=== PATIENT | male | born 1960 | race Caucasian/White ===

== ENCOUNTER → 2019-10-11 | Outpatient (CLI) | payer MEDICARE, BC ==
[~2019-10-11] MED LIST: ACET500C OR; ALEVE; AMIT25TA2; AMIT25TA2 OR; AMIT50TA4 PO; DYAZ37.5; DYAZCA PO; IBUP600T OR; LYRI150C OR; LYRI200C PO; NEUR100C OR; OXYC1TAB30 PO; TRAM50TA2 OR; VITA200015 PO
--- NOTE | 2019-10-24 04:42 | ECWPNPC ---
PATIENT NAME: MARC POLANCO : 1960 GENDER: MALE VISIT DATE: 10/11/2019 DISCHARGE DATE: 10/11/19 1100 VISIT LOCKED DATE TIME: PHYSICIAN: JESUS JACOME MD RESOURCE: JESUS JACOME MD REASON FOR APPOINTMENT 1. DCS REMOVAL HISTORY OF PRESENT ILLNESS PAIN SCREENING: PATIENT HAS A COMPLAINT OF ACUTE OR CHRONIC PAIN :YES 59 YEAR OLD MALE PATIENT WITH A HISTORY OF CHRONIC LOW BACK AND LEG PAIN. THE PATIENT DESCRIBES THE PAIN BURNING, SHARP, STABBING, DAILY, AND CONTINUOUS WITH A PAIN SCORE OF 7-10/10 DEPENDING ON PHYSICAL ACTIVITY. THE PATIENT STATES HIS PAIN BEGINS IN HIS LOW BACK AND RADIATES DOWN HIS RIGHT LEG. THE PATIENT SAYS HE HAS BEEN SUFFERING FROM HIS PAIN FOR MANY YEARS. THE PATIENT SAYS HE RECEIVED A DCS IMPLANT ABOUT SEVEN YEARS AGO, WHICH HELPS WITH SOME OF THE LEG BURNING AND PAIN, BUT NOT THE BACK PAIN. THE PATIENT SAYS WHEN HIS DCS IS OFF, HIS PAIN IS STILL PRESENT. THE PATIENT SAYS HE WAS SEEN BY A NEUROLOGIST TO STUDY WHAT MAY BE CAUSING HIS LEG PAIN, BUT THE TESTS DID NOT SHOW ANY REASON FOR THE PAIN. THE PATIENT SAYS HE IS USING OXYCODONE FOR HIS BACK PAIN AND LYRICA FOR THE BURNING SENSATION IN HIS LEG. THE PATIENT STATES HE IS UNABLE TO HAVE MRI'S DUE TO THE DCS IMPLANT, AND HE WOULD LIKE TO HAVE IT REMOVED SO HE CAN HAVE NECESSARY STUDIES DONE. PATIENT DENIES UNEXPLAINABLE WEIGHT LOSS, FEVER, CHILLS, NEW CHANGES ON HIS URINARY OR BOWEL CONTROL. FALL RISK SCREENING: SCREENING :NO FALLS REPORTED IN THE LAST YEAR CURRENT MEDICATIONS TAKING OXYCODONE-ACETAMINOPHEN 7.5-325 MG TABLET 1 TABLET NEEDED ORALLY EVERY 4 HOURS NEEDED MDD=5 TAKING TRIAMTERENE-HCTZ 37.5-25 MG TABLET 1 TABLET IN THE MORNING ORALLY ONCE A DAY TAKING AMITRIPTYLINE HCL 50 MG TABLET 1 TABLET AT BEDTIME ORALLY ONCE A DAY TAKING METOPROLOL SUCCINATE ER 50 MG TABLET EXTENDED RELEASE 24 HOUR 1 TABLET ORALLY ONCE A DAY TAKING LYRICA 200 MG CAPSULE 1 CAPSULE 1 TO 3 HOURS BEFORE BEDTIME ORALLY TID MEDICATION LIST REVIEWED AND RECONCILED WITH THE PATIENT PAST MEDICAL HISTORY HYPERTENSION CHRONIC BACK PAIN SLEEP APNEA ALLERGIES N.K.D.A. SURGICAL HISTORY RIGHT KNEE LEFT SHOULDER LOW BACK SURGERY L3 L4 L5 L6 GALL BLADDER REMOVAL GASTRIC BYPASS DORSAL COLUMN INSTALL FAMILY HISTORY FATHER: ALIVE, DIAGNOSED WITH UNSPECIFIED HEART DISEASE MOTHER: ALIVE SIBLINGS: ALIVE SOCIAL HISTORY GENERAL: TOBACCO USE ARE YOU A:NONSMOKER EDUCATION LEVEL OF EDUCATION:HIGH SCHOOL LANGUAGE LANGUAGES SPOKEN:HEBREW RECREATIONAL DRUG USE DRUG USE?NO LEARNING BARRIERS / SPECIAL NEEDS BARRIERS TO LEARNING?NO HEARING IMPAIRED?NO VISION IMPAIRED?YES :CORRECTIVE LENSES COGNITIVELY IMPAIRED?NO READINESS TO LEARN?YES PAIN CLINIC PFS, CLERGY, PUBLIC HEALTH REFERRALS HAS THE PATIENT BEEN EDUCATED REGARDING HIS/HER PLAN OF CARE?YES HAS THE PATIENT BEEN EDUCATED REGARDING PAIN, THE RISK FOR PAIN, THE IMPORTANCE OF EFFECTIVE PAIN MANAGEMENT, AND THE PAIN ASSESSMENT PROCESS?YES LATEX QUESTIONNAIRE LATEX ALLERGY : HAVE YOU EVER DEVELOPED ANY TYPE OF REACTION AFTER HANDLING LATEX PRODUCTS SUCH RUBBER GLOVES, CONDOMS, DIAPHRAGMS, BALLOONS, SOCKS, OR UNDERWEAR?NO LATEX ALLERGY : HAVE YOU EVER DEVELOPED ANY TYPE OF REACTION DURING OR AFTER DENTAL APPOINTMENT, VAGINAL/RECTAL EXAMINATION, SURGICAL PROCEDURE, OR ANY OTHER EXPOSURE?NO LATEX RISK : HAVE YOU EVER HAD ANY DIFFICULTY BREATHING OR HIVES AFTER EATING OR HANDLING ANY FRUITS, OR VEGETABLES; SUCH KIWI, BANANAS, STONE FRUITS, OR CHESTNUTSNO LATEX RISK : DO YOU HAVE A PREVIOUS PERSONAL HISTORY OF MORE THAN NINE SURGERIES, SPINA BIFIDA, OR REPEATED CATHERIZATIONS? NO LATEX RISK : ARE YOU FREQUENTLY EXPOSED TO LATEX PRODUCTS IN YOUR OCCUPATION?NO DATE ASKED : 10/11/2019 CAFFEINE CAFFEINE USE?YES COFFEE 3X'S A DAY ; SODA 1-2 TIMES A DAY ADVANCE DIRECTIVE ADVANCE DIRECTIVE DISCUSSED WITH PATIENT:YES PT STATES HE DOES HAVE HCP FOR ANDERS POLANCO [phone] HINDU [id number] MARITAL STATUS: . ALCOHOL SCREENING DID YOU HAVE A DRINK CONTAINING ALCOHOL IN THE PAST YEAR?YES HOW OFTEN DID YOU HAVE A DRINK CONTAINING ALCOHOL IN THE PAST YEAR?MONTHLY OR LESS (1 POINT) HOW MANY DRINKS DID YOU HAVE ON A TYPICAL DAY WHEN YOU WERE DRINKING IN THE PAST YEAR?1 OR 2 (0 POINTS) HOW OFTEN DID YOU HAVE SIX OR MORE DRINKS ON ONE OCCASION IN THE PAST YEAR?NEVER (0 POINTS) POINTS1 INTERPRETATIONNEGATIVE OCCUPATION: RETIRED [employer]. REVIEWED WITH PATIENT 10/11/2019 1015 BV. HOSPITALIZATION/MAJOR DIAGNOSTIC PROCEDURE SEE SURGERIES ABOVE REVIEW OF SYSTEMS REVIEWED BY: PROVIDER: JESUS JACOME MD . CONSTITUTIONAL: ANY CHANGE IN YOUR MEDICAL CONDITION? NO . CHILLS NO . FEVER NO . INFECTION: DO YOU HAVE NEW INFECTIONS? NO . DO YOU HAVE HISTORY OF MRSA? NO . MUSCULOSKELETAL: ANY NEW PATTERNS OF PAIN OR NUMBNESS? YES, PT REPORTS THE PAST 4-5 YEARS HAVING NUMBNESS IN LEFT LEG. STATES HIS LEFT FOOT "DRAGS AND DOESN'T RESPOND LIKE IT SHOULD" . SYTEMIC LUPUS NO . GASTROENTEROLOGY: ANY NEW CHANGE IN BOWEL CONTROL? NO . BARRETTS ESOPHAGUS NO . CIRRHOSIS NO . HEPATITIS NO . LIVER FAILURE NO . ACID REFLUX NO . UNEXPLAINED WEIGHT LOSS NO . GENITOURINARY: ANY NEW CHANGE IN BLADDER CONTROL? NO . IS THERE A CHANCE YOU COULD BE ? NO . HEMATOLOGY/LYMPH: DO YOU TAKE ANY BLOOD THINNERS? (FOR EXAMPLE- COUMADIN, PLAVIX, AGGRENOX, PLATEL, PRADAXA, OR XARELTO) NO . WHEN WAS YOUR LAST DOSE? DATE: TIME: . LOW PLATELET COUNT NO . SICKLE CELL DISEASE NO . VON WILLIEBRANDS NO . FACTOR V LEIDEN NO . THALLASEMIA NO . ANEMIA NO . EASY BRUISING NO . NEUROLOGY: HAVE YOU FALLEN IN THE PAST 12 MONTHS? YES, MULTIPLE FALLS IN THE PAST YEAR DUE TO LOSS OF BALANCE. DENIES ANY INJURIES OR ED VISIT WITH ANY FALL. PT STATES HE DOES USE A CANE "MOST OF THE TIME" TO HELP WITH THE LOSS OF BALANCE . ANY NEW EXTREMITY NUMBNESS OR WEAKNESS? NO . HEAD INJURY NO . DEMENTIA NO . CEREBRAL PALSY NO . MULTIPLE SCLEROSIS NO . DIZZINESS NO . HEADACHE NO . STROKES NO . VERTIGO NO . CARDIOLOGY: DO YOU HAVE A PACEMAKER OR DEFIBRILLATOR? PT DOES HAVE DORSAL COLUMN STIMULATOR . ANGINA NO . HEART ATTACK NO . HEART SURGERY NO . CONGESTIVE HEART FAILURE/FLUID OVERLOAD NO . CHEST PAIN NO . HIGH BLOOD PRESSURE ON MEDICATION(S) . IRREGULAR HEART BEAT NO . RESPIRATORY: HAVE YOU BEEN SICK IN THE PAST WEEK? NO . FEVER NO . FLU LIKE SYMPTOMS? NO . CPAP YES, PT DIAGNOSED WITH SLEEP APNEA AND DOES USE CPAP EVERY NIGHT . BYPAP NO . ASTHMA NO . EMPHYSEMA NO . CHRONIC LUNG DISEASES NO . SHORTNESS OF BREATH ON EXERTION NO . COUGH NO . SNORING NO . INTEGUMENTARY: DO YOU HAVE ANY RASHES OR OPEN SORES? NO . ALLERGIC/IMMUNO: ARE YOU ALLERGIC TO IV DYE? NO . ANY NEW ALLERGIES? NO . PSYCHIATRIC: DO YOU HAVE THOUGHTS OF HURTING YOURSELF OR SOMEONE ELSE? NO . ARE YOU ABUSED, NEGLECTED, OR IN AN UNSAFE ENVIRONMENT? NO . ENDOCRINOLOGY: ARE YOU DIABETIC? NO . THYROID DISORDER NO . OTHER: DO YOU NEED ANY PRESCRIPTIONS? NO . IF YES, PLEASE LIST: ____ . ANY NEW PROBLEMS WITH YOUR MEDICATIONS? NO . WHEN DID YOU LAST EAT? ____ . WHEN DID YOU LAST DRINK? ____ . WHAT DID YOU LAST DRINK? ____ . NAME OF PERSON DRIVING YOU HOME? ____ . DO YOU HAVE ANY OTHER QUESTIONS OR CONCERNS NO . VITAL SIGNS WT 316 LBS, HT 70 IN, BMI 45.34 INDEX, BP 144/72 MM HG, HR 71 /MIN, RR 20 /MIN, TEMP 97.9 F, OXYGEN SAT % 96%, NA INITIALS SC 10:01, REVIEWED BY: BV. EXAMINATION GENERAL EXAMINATION: PATIENT IS ALERT O X 3 AND COOPERATIVE. LUNGS CLEAR, TO AUSCULTATION. HEART: NO MURMURS OR GALLOPS; FACIAL CRANIAL NERVES ARE GROSSLY NORMAL. GOOD SYMMETRY OF FACIAL MUSCLE MOVEMENT. NORMAL VISUAL VILLALOBOS. ANTALGIC WALK. PATIENT IS LIMPING FROM THE LEFT LEG. SURGICAL SCAR OF THE DCS IMPLANT IS PRESENT. LEFT LEG IS WEAKER AT EXTENSION AND FLEXION. CT SCAN OF THE THORACIC SPINE DONE ON 02/07/[address] SCAN OF THE LUMBAR SPINE DONE ON 02/07/2019 SHOWS STENOSIS AT L3-L4, L4-L5, AND L5-S1 LEVELS, BULGING DISCS AT MULTIPLE LEVELS, AND FRACTURE OF THE RIGHT ILIAC BONE. HEAD CT SCAN DONE ON 12/27/2018 SHOWS NO ACUTE PATHOLOGY. ASSESSMENTS INTERVERTEBRAL DISC DISORDERS WITH RADICULOPATHY, LUMBAR REGION - M51.16 (PRIMARY) LEFT LEG WEAKNESS - R29.898 STATUS POST DCS IMPLANT--7 YEARS AGONEW ONSET LEFT LEG WEAKNESS--WITHOUT CLEAR ETIOLOGY. TREATMENT INTERVERTEBRAL DISC DISORDERS WITH RADICULOPATHY, LUMBAR REGION CLINICAL NOTES: WE DISCUSSED SEVERAL ISSUES WITH MR. POLANCO'S PAIN MANAGEMENT CASE. WE AGREED ON REMOVING THE PATIENT'S DCS IMPLANT TO ALLOW HIM TO HAVE MRI STUDIES DONE TO LOCATE THE REASON FOR HIS LEFT LEG WEAKNESS. AFTER HE HAD THE APPROPRIATE STUDIES DONE, WE WILL CONSIDER TRYING FOR ANOTHER DCS TRIAL FOR A NEW DCS IMPLANT WITH NEW TECHNOLOGY. I WILL REFER THE PATIENT TO NEREYDA JOY FOR THE REMOVAL OF THE PATIENT'S CURRENT DCS IMPLANT. INSTRUCTIONS WERE GIVEN, QUESTIONS WERE ANSWERED, PATIENT REPORTS UNDERSTANDING AND AGREES WITH THE PLAN. I, KRISTI SANTOS, DOCUMENTED THE ABOVE INFORMATION ACTING A SCRIBE FOR DR. JACOME. I HAVE REVIEWED THE ABOVE DOCUMENT, WRITTEN BY KRISTI HARRISONIBFany AND I VERIFY THAT IT IS ACCURATE. DEAR DR. AMPARO WYMAN: THANK YOU FOR YOUR KIND REFERRAL OF MARC POLANCO. IF YOU WANT TO DISCUSS HIS CASE WITH ME PLEASE CALL ME AT THE PAIN CENTER AT [phone]. SINCERELY, JESUS JACOME MD PAIN MEDICINE . PROCEDURE CODES FA211 ESTABILISHED PATIENT [facility] CHARGE [id number] CURRENT MEDS W/DOSAGES DOCUMENTED G8730 PAIN ASSESS POS TOOL F/U PLAN DOC DISPOSITION & COMMUNICATION FOLLOW UP REASON: REFERRING TO NEREYDA JOY FOR REMOVAL OF DCS ELECTRONICALLY SIGNED BY JESUS JACOME MD, MD ON 10/23/2019 AT 02:46 PM EST DISCLAIMER : THIS IS A VISIT SUMMARY EXTRACTED FROM THE [employer] CHART. IT IS NOT A COPY OF THE [employer] PROGRESS NOTE. HENRY
== END ==
LOC: M PAIN 10:00
PROVIDERS: ATTEND Anesthesiology
DX: M51.16 Intervertebral disc disorders with radiculopathy, lumbar region (principal); R29.898 Other symptoms and signs involving the musculoskeletal system; G89.29 Other chronic pain; I10 Essential (primary) hypertension; G47.30 Sleep apnea, unspecified; Z98.84 Bariatric surgery status; Z91.81 History of falling; Z96.89 Presence of other specified functional implants; E66.01 Morbid (severe) obesity due to excess calories; Z68.42 Body mass index [BMI] 45.0-49.9, adult; Z79.899 Other long term (current) drug therapy